=== PATIENT | female | born 1975 | race Caucasian/White ===

== ENCOUNTER → 2021-06-07 11:43 | Outpatient (BNVA) | payer SELFPAY | DX: R39.9 Unspecified symptoms and signs involving the genitourinary system (principal); N39.0 Urinary tract infection, site not specified; R31.9 Hematuria, unspecified; R68.89 Other general symptoms and signs | CPT/HCPCS: 81000 ==

== ENCOUNTER 2021-06-16 20:29 | Emergency (ER) | payer SELFPAY ==
[2021-06-16 21:29] VITALS: BP 145/89; PULSE 88; RESP 16; TEMP 36.7; O2SAT 98; BMI 31.8
--- NOTE | 2021-06-17 01:59 | ED_ITS ---
HPI - Female Genitourinary General: Chief complaint: Urogenital-Female Stated complaint: Lower Back Pain\Fever Cant Sleep Time Seen by Provider: 06/17/21 01:51 Source: patient Mode of arrival: ambulatory Limitations: no limitations History of Present Illness: HPI Narrative: 35-year-old female states over the last 2 weeks she has been having right-sided flank pain along with fevers body aches and general malaise. States she has been very fatigued and sleeping a lot. She states she does not have a PCP but saw urgent care a little over a week ago diagnosed a UTI and just finished Macrobid. Denies any vomiting or diarrhea. Denies any abdominal pain. Associated symptoms: Deny abdominal pain, headache(s) or nausea Review of Systems Const: Reports: fever(s), body aches and fatigue Eyes: Denies: blurry vision or eye discomfort ENMT: Denies: throat pain or dental pain Card: Denies: chest pain Resp: Denies: dyspnea GI: Denies: abdominal pain, nausea, vomiting or diarrhea : Reports: flank pain Musc: Denies: neck pain or back pain Skin/Breast: Denies: rash Neuro: Denies: headache(s) Psych: Denies: depression Kristopher/Lymph: Denies: easy bruising All/Imm: Denies: urticaria PFSH ED PFSH: Social History Smoking and tobacco status: current every day smoker Physical Exam Const: COMMON NORMALS: no acute distress, patient oriented x3 and healthy appearing HENMT: COMMON NORMALS: normocephalic and atraumatic HEAD & SCALP: normocephalic and atraumatic Eye: COMMON NORMALS: Equal, round and reactive pupils present and EOMs intact bilaterally PUPIL: Yes Equal, round and reactive pupils present Neck/C-Spine: COMMON NORMALS: full ROM and supple Chest: COMMONS NORMALS: normal inspection of the chest and normal palpation of entire chest wall Resp: COMMON NORMALS: normal respiratory effort, No retractions, No use of accessory muscles and clear to auscultation bilaterally AUSCULTATION: clear to auscultation bilaterally Cardio: COMMON NORMALS: regular rate, regular rhythm and No murmurs present (Cardio) RATE: regular rate RHYTHM: regular rhythm GI: COMMON NORMALS: Normal to inspection, nondistended, normoactive bowel sounds present, Soft to palpation, non-tender and no masses PALPATION: Yes Soft to palpation Extremity: COMMON NORMALS: normal to inspection and full ROM Neuro: COMMON NORMALS: patient oriented x3, moves all extremities and no focal motor deficits Psych: COMMON NORMALS: mental status grossly normal, Normal thought process present and cooperative THOUGHT PROCESS: Normal thought process present Skin: COMMON NORMALS: no rashes or lesions noted and no wounds GENERAL SKIN EXAM: no rashes or lesions noted Course Vital Signs: Vital signs: Vital Signs Temperature 98.1 F 06/16/21 21:29 Pulse Rate 88 06/16/21 21:29 Respiratory Rate 22 H 06/17/21 03:02 Blood Pressure 133/59 06/17/21 03:02 Pulse Oximetry 97 06/17/21 03:02 MDM - Female MDM Narrative: Medical decision making narrative: Patient presents with low back pain is been going on for quite some time. Her blood work here is normal. Abdominal exam here is benign and she has no signs of kidney infection or acute surgical abdomen. Will place patient on pain meds and she is to follow-up with PCP as scheduled next week and return if worsening. Lab Data: Labs: Lab Results 06/17/21 06/17/21 06/17/21 Range/Units 03:40 03:40 03:40 WBC 6.7 (4.0-10.0) 10^3/ uL RBC 4.40 (4.1-5.3) 10^6/u L Hgb 13.9 (11.5-15.3) g/dL Hct 41.1 (37.0-47.0) % MCV 93.4 (81-99) fL MCH 31.6 (28.0-34.0) pg MCHC 33.8 (30.0-36.0) g/dL RDW 13.8 (12.1-15.1) % Plt Count 224 (130-400) 10^3/c mm MPV 8.8 (7.4-10.4) fL Lymph % (Auto) Not Reportable [place] % (Auto) Not Reportable Lymph # (Auto) Not Reportable [place] # (Auto) Not Reportable Total Counted 100 (0-100) Atypical Lymphs % 9.0 H (0-5) % Absolute Neutrophi ls 4.0 (1.4-6.5) 10^3/c mm Segmented Neutroph ils 55 % Abs Segm Neuts (Ma n) 3.7 (1.6-7.1) 10/cmm Band Neutrophils 4.0 % Abs Band Neuts (Ma n) 0.3 (0.0-1.2) 10^3/c mm Absolute Lymphocyt es 2.3 (1.2-3.4) 10^3/c mm Lymphocytes (Manua l) 26 % Monocytes (Manual) 2.0 % Absolute Monocytes 0.1 (0.1-0.6) 10^3/c mm Eosinophils (Manua l) 4 % Absolute Eosinophi ls 0.2 (0.0-0.7) 10^3/c mm Basophils (Manual) 0.0 % Absolute Basophils 0.0 (0.0-0.2) 10^3/c mm Platelet Estimate Normal (Normal) Sodium 130 L (136-145) mmol/L Potassium 3.6 (3.5-5.1) mmol/L Chloride 95 L (98-107) mmol/L Carbon Dioxide 24 (22-29) mmol/L Anion Gap 14.6 (5-19) BUN 8 (6-20) mg/dL Creatinine 0.8 (0.5-0.9) mg/dL GFR Calculation 77.6 L (90-130) mL/min Glucose 95 (65-115) mg/dL Calculated Osmolal ity 268 L (285-295) mOsm/k g Calcium 8.3 L (8.5-10.5) mg/dL Total Bilirubin 0.3 (0.15-1.2) mg/dL AST 24 (0-32) U/L ALT 24 (0-33) U/L Alkaline Phosphata se 113 H (35-105) IU/L Total Protein 6.7 (6.6-8.7) g/dL Albumin 3.7 (3.5-5.2) g/dL Globulin 3.0 (1.3-4.6) g/dL Lipase 40 (13-60) U/L TSH (0.27-4.20) uIU/ mL HCG, Qual Negative (Negative) Urine Color (Yellow) Urine Appearance (CLEAR) Urine pH (5-7) Ur Specific Gravit y (1.005-1.030) Urine Protein (Negative) Urine Glucose (UA) (Normal) Urine Ketones (Negative) Urine Blood (Negative) Urine Nitrate (Negative) Urine Bilirubin (Negative) Urine Urobilinogen (Negative) mg/dL Ur Leukocyte Aster ase (Negative) Urine RBC (0-2) /hpf Urine WBC (0-5) /hpf Ur Squamous Epith Cells (0-5) /hpf Amorphous Sediment Urine Bacteria (NONE) /hpf Urine Mucus /hpf 06/17/21 06/17/21 Range/Units 03:40 03:40 WBC (4.0-10.0) 10^3/ uL RBC (4.1-5.3) 10^6/u L Hgb (11.5-15.3) g/dL Hct (37.0-47.0) % MCV (81-99) fL MCH (28.0-34.0) pg MCHC (30.0-36.0) g/dL RDW (12.1-15.1) % Plt Count (130-400) 10^3/c mm MPV (7.4-10.4) fL Lymph % (Auto) [place] % (Auto) Lymph # (Auto) [place] # (Auto) Total Counted (0-100) Atypical Lymphs % (0-5) % Absolute Neutrophi ls (1.4-6.5) 10^3/c mm Segmented Neutroph ils % Abs Segm Neuts (Ma n) (1.6-7.1) 10/cmm Band Neutrophils % Abs Band Neuts (Ma n) (0.0-1.2) 10^3/c mm Absolute Lymphocyt es (1.2-3.4) 10^3/c mm Lymphocytes (Manua l) % Monocytes (Manual) % Absolute Monocytes (0.1-0.6) 10^3/c mm Eosinophils (Manua l) % Absolute Eosinophi ls (0.0-0.7) 10^3/c mm Basophils (Manual) % Absolute Basophils (0.0-0.2) 10^3/c mm Platelet Estimate (Normal) Sodium (136-145) mmol/L Potassium (3.5-5.1) mmol/L Chloride (98-107) mmol/L Carbon Dioxide (22-29) mmol/L Anion Gap (5-19) BUN (6-20) mg/dL Creatinine (0.5-0.9) mg/dL GFR Calculation (90-130) mL/min Glucose (65-115) mg/dL Calculated Osmolal ity (285-295) mOsm/k g Calcium (8.5-10.5) mg/dL Total Bilirubin (0.15-1.2) mg/dL AST (0-32) U/L ALT (0-33) U/L Alkaline Phosphata se (35-105) IU/L Total Protein (6.6-8.7) g/dL Albumin (3.5-5.2) g/dL Globulin (1.3-4.6) g/dL Lipase (13-60) U/L TSH 2.17 (0.27-4.20) uIU/ mL HCG, Qual (Negative) Urine Color Yellow (Yellow) Urine Appearance Clear (CLEAR) Urine pH 5 (5-7) Ur Specific Gravit y 1.020 (1.005-1.030) Urine Protein Neg (Negative) Urine Glucose (UA) Norm (Normal) Urine Ketones Negative (Negative) Urine Blood 2+ H (Negative) Urine Nitrate Negative (Negative) Urine Bilirubin 1+ H (Negative) Urine Urobilinogen 1 H (Negative) mg/dL Ur Leukocyte Aster ase Negative (Negative) Urine RBC 0-4 H (0-2) /hpf Urine WBC 0-4 H (0-5) /hpf Ur Squamous Epith Cells 10-15 H (0-5) /hpf Amorphous Sediment Not Reportable Urine Bacteria Trace (NONE) /hpf Urine Mucus 1+ /hpf Discharge Plan Discharge Patient Disposition: Home Clinical Impression: Low back pain Qualifiers: Chronicity: acute Back pain laterality: bilateral Sciatica presence: without sciatica Qualified Code(s): M54.5 - Low back pain Condition: Stable Prescriptions: New hydrocodone-acetaminophen 5-325 mg tablet 1 tab PO Q6H PRN (Reason: pain) Qty: 14 RF: 0 methocarbamol 750 mg tablet 750 mg PO Q6H PRN (Reason: spasms) Qty: 20 RF: 0 No Action dextroamphetamine-amphetamine [Adderall] 10 mg tablet 10 mg PO DAILY RF: 0 nitrofurantoin macrocrystal 100 mg capsule 100 mg PO BID 7 Days Qty: 14 RF: 0 Discharge Orders: Discharge ED (Routine); Ordered 06/17/21 Ordered By: Rober Stanton Discharge Diet: Advance as tolerated Discharge Activity: Resume usual activity Patient Instructions: Opioid Safety Coding Level of Care Code ED Senior Consumer Insights Consultant for Suhailg Fwd Exam Comprehensive
--- NOTE | 2021-06-17 02:02 | XRR_ITS ---
PROCEDURE INFORMATION: Exam: XR Chest Exam date and time: 06/17/2021 2:02 AM Age: 45 years old Clinical indication: Patient HX: Fever. Clothing artifact present on film. TECHNIQUE: Imaging protocol: XR of the chest. Views: 1 view. COMPARISON: CR Chest 1 [place] [id number] 08/18/2016 3:36 PM FINDINGS: Lungs: There are multiple calcified pulmonary nodules consistent with prior granulomatous disease. Hazy right basilar opacity which could be secondary to atelectasis or pneumonia. Pleural spaces: Unremarkable. No pleural effusion. No pneumothorax. Heart/Mediastinum: Unremarkable. No cardiomegaly. Bones/joints: Unremarkable. XR/XR chest 1V portable [id number] IMPRESSION: Hazy right basilar opacity which could be secondary to atelectasis or pneumonia.
[2021-06-17 03:02] VITALS: BP 133/59; RESP 22; O2SAT 97
[2021-06-17 03:46] LABS: Hematocrit 41.1 % (37.0-47.0); Hemoglobin 13.9 g/dL (11.5-15.3); Mean Corpuscular HGB Conc 33.8 g/dL (30.0-36.0); Mean Corpuscular Hemoglobin 31.6 pg (28.0-34.0); Mean Corpuscular Volume 93.4 fL (81-99); Mean Platelet Volume 8.8 fL (7.4-10.4); Platelet Count 224 10^3/cmm (130-400); Red Cell Distribution Width 13.8 % (12.1-15.1); White Blood Count 6.7 10^3/uL (4.0-10.0)
[2021-06-17] MEDS: sodium chloride 0.9% 1,000 ML 999 ML IV (04:00)
[2021-06-17] MEDS: ondansetron 2 mg/ML SDV 2 mL 4 MG IVP (04:02)
[2021-06-17 04:06] LABS: Alanine Aminotransferase 24 U/L (0-33); Albumin Level 3.7 g/dL (3.5-5.2); Alkaline Phosphatase 113 IU/L (35-105); Anion Gap 14.6 (5-19); Aspartate Amino Transferase 24 U/L (0-32); Blood Urea Nitrogen 8 mg/dL (6-20); Calcium 8.3 mg/dL (8.5-10.5); Carbon Dioxide 24 mmol/L (22-29); Chloride 95 mmol/L (98-107); Glomerular Filtration Rate 77.6 mL/min (90-130); Glucose 95 mg/dL (65-115); Lipase 40 U/L (13-60); Osmolality Calculated 268 mOsm/kg (285-295); Potassium 3.6 mmol/L (3.5-5.1); Sodium 130 mmol/L (136-145); Total Bilirubin 0.3 mg/dL (0.15-1.2); Total Protein 6.7 g/dL (6.6-8.7)
[2021-06-17 04:09] LABS: Absolute Eosinophils 0.2 10^3/cmm (0.0-0.7); Absolute Segmented Neutrophil 3.7 10/cmm (1.6-7.1); Band Neutrophils Absolute 0.3 10^3/cmm (0.0-1.2); Eosinophils 4 %; Lymphocytes 26 %; Lymphocytes Absolute 2.3 10^3/cmm (1.2-3.4); Monocytes Absolute 0.1 10^3/cmm (0.1-0.6); Platelet Estimate Normal (Normal); Segmented Neutrophils 55 %; Slide Review Slide Review Perform; Total Cells Counted 100 (0-100)
[2021-06-17 04:16] LABS: Thyroid Stimulating Hormone 2.17 uIU/mL (0.27-4.20)
[2021-06-17 04:54] LABS: Add Urine Microscopic? YES; Bilirubin Urine 1+ (Negative); Blood Urine 2+ (Negative); Glucose Urine UA Norm (Normal); Ketones Urine Negative (Negative); Leukocyte Esterase Urine Negative (Negative); Nitrate Urine Negative (Negative); Protein Urine Neg (Negative); RBC Urine 0-4 /hpf (0-2); Urine Appearance Clear (CLEAR); Urine Color Yellow (Yellow); Urobilinogen Urine 1 mg/dL (Negative); WBC Urine 0-4 /hpf (0-5); pH Urine 5 (5-7)
[2021-06-17 04:55] LABS: Add Urine Culture? No; Bacteria Urine TRACE /hpf; Mucus Urine 1+ /hpf
[2021-06-17 05:10] LABS: HCG Qualitative Urine. Negative (Negative)
[2021-06-17 06:18] VITALS: RESP 18; O2SAT 97
[2021-06-17] MEDS: morphine 4 mg/mL SDV 1 mL IVP (06:18)
[2021-06-17 06:21] VITALS: BP 133/59; PULSE 88; RESP 22; O2SAT 97
== END 2021-06-17 06:10 | disposition home or self-care (01) ==
PROVIDERS: Emergency Provider Emergency Medicine
DX: M54.5 Low back pain (principal); F17.200 Nicotine dependence, unspecified, uncomplicated
CPT/HCPCS: 71045; 80053; 81001; 81025; 83690; 84443; 85007; 85025; 96361; 96374; 96375; 99283; J2270; J2405; J7030

== ENCOUNTER → 2021-06-22 12:17 | Outpatient (BNVA) | payer OTHER, SELFPAY | PROVIDERS: Visit Provider Nurse Practitioner Family | DX: Z20.822 Contact with and (suspected) exposure to COVID-19 (principal) | CPT/HCPCS: 87635 ==

== ENCOUNTER 2021-06-29 17:23 | Emergency (ER) | payer SELFPAY ==
[2021-06-29 17:40] VITALS: BP 143/75; PULSE 98; RESP 24; TEMP 38.7; O2SAT 94
--- NOTE | 2021-06-29 18:49 | XRR_ITS ---
PROCEDURE INFORMATION: Exam: XR Chest Exam date and time: 06/29/2021 6:49 PM Age: 45 years old Clinical indication: Shortness of breath TECHNIQUE: Imaging protocol: XR of the chest. Views: 1 view. COMPARISON: CR (CHEST, ) 06/17/2021 2:02 AM FINDINGS: Lungs: 5 mm calcified granuloma left upper lobe. No consolidative pulmonary infiltrates are noted. Pleural spaces: No pleural effusion. No pneumothorax. Heart/Mediastinum: No cardiomegaly. Bones/joints: Unremarkable. XR/XR chest 1V portable [id number] IMPRESSION: 1. No acute abnormality demonstrated. 2. There is no interval change from the prior examination.
[2021-06-29 20:45] LABS: SARS Covid-2 Antigen Negative (Negative)
--- NOTE | 2021-06-29 20:50 | ECG_ITS ---
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 Measurements Intervals [place] Rate: 93 P: 62 CO: 117 QRS: 9 QRSD: 86 T: 44 QT: 348 QTc: 433 Interpretive Statements SINUS RHYTHM WITH SHORT CO INTERVAL Compared to ECG 08/18/2016 17:45:36 Short CO interval now present Electronically Signed On 07-01-2021 7:40:58 CDT by Karey Hurst M.D. [id number]
[2021-06-29 22:31] LABS: Hematocrit 41.6 % (37.0-47.0); Hemoglobin 13.7 g/dL (11.5-15.3); Mean Corpuscular HGB Conc 32.9 g/dL (30.0-36.0); Mean Corpuscular Hemoglobin 31.6 pg (28.0-34.0); Mean Corpuscular Volume 95.9 fL (81-99); Mean Platelet Volume 8.7 fL (7.4-10.4); Platelet Count 322 10^3/cmm (130-400); Red Blood Count 4.34 10^6/uL (4.1-5.3); Red Cell Distribution Width 14.4 % (12.1-15.1); White Blood Count 22.2 10^3/uL (4.0-10.0)
[2021-06-29 22:47] LABS: Anion Gap 15.5 (5-19); Blood Urea Nitrogen 10 mg/dL (6-20); Calcium 7.8 mg/dL (8.5-10.5); Carbon Dioxide 25 mmol/L (22-29); Chloride 92 mmol/L (98-107); Glomerular Filtration Rate 90.5 mL/min (90-130); Glucose 102 mg/dL (65-115); Osmolality Calculated 267 mOsm/kg (285-295); Potassium 3.5 mmol/L (3.5-5.1); Sodium 129 mmol/L (136-145)
--- NOTE | 2021-06-29 22:51 | USR_ITS ---
PROCEDURE INFORMATION: Exam: US Duplex Lower Extremity Veins, Bilateral Exam date and time: 06/29/2021 10:51 PM Age: 45 years old Clinical indication: Swelling (edema) of limb; Lower extremity, right and lower extremity, left; Additional info: Evaluate for dvt (l>r swelling) TECHNIQUE: Imaging protocol: Real-time duplex ultrasound of the extremities with 2-D durbin scale, color Doppler flow and spectral waveform analysis with image documentation. Complete exam focused on the bilateral lower extremity veins. COMPARISON: No relevant prior studies available. FINDINGS: Right deep veins: Unremarkable. The common femoral, femoral, proximal profunda femoral and popliteal veins are patent without thrombus. Normal Doppler waveforms. Normal compressibility and/or augmentation response. Right superficial veins: Saphenofemoral junction is patent without thrombus. Left deep veins: Unremarkable. The common femoral, femoral, proximal profunda femoral and popliteal veins are patent without thrombus. Normal Doppler waveforms. Normal compressibility and/or augmentation response. Left superficial veins: Saphenofemoral junction is patent without thrombus. Soft tissues: Unremarkable. US/CV venous duplex [facility] [id number] IMPRESSION: No evidence of deep vein thrombosis, bilateral lower extremities.
--- NOTE | 2021-06-29 22:51 | CTR_ITS ---
PROCEDURE INFORMATION: Exam: CTA Chest With Contrast Exam date and time: 06/29/2021 10:51 PM Age: 45 years old Clinical indication: Nausea; Shortness of breath; Prior surgery; Surgery type: Hyst, gb; Additional info: Rule out pe, weakness TECHNIQUE: Imaging protocol: Computed tomographic angiography of the chest with contrast. 3D rendering (Not supervised by radiologist): MIP and/or 3D reconstructed images were created by the technologist. Radiation optimization: All CT scans at this facility use at least one of these dose optimization techniques: automated exposure control; mA and/or kV adjustment per patient size (includes targeted exams where dose is matched to clinical indication); or iterative reconstruction. Contrast material: OMNI 350; Contrast volume: 95 ml; Contrast route: INTRAVENOUS (IV); COMPARISON: CR (CHEST, ) 06/29/2021 9:40 PM RADIATION DOSE METRICS: Total DLP (mGy-cm): 3163.3 FINDINGS: Pulmonary arteries: Pulmonary arteries are well opacified. Pulmonary arteries are normal in caliber. No filling defects are demonstrated. No evidence of pulmonary embolism. Aorta: The thoracic aorta appears unremarkable. No aneurysm or dissection demonstrated. Lungs: 10 mm calcified granuloma left lower lobe. Mild fibrosis at the lung apices and bilateral lung bases. Minimal bronchiectasis in the right middle lobe and right lower lobe. No consolidative pulmonary infiltrate. Pleural spaces: No pleural effusion or pneumothorax noted. Heart: No cardiomegaly. No pericardial effusion. Lymph nodes: Calcified mediastinal lymph nodes consistent with old granulomatous disease. No pathologically enlarged lymph nodes are demonstrated. Bones/joints: Mild degenerative spine changes. No acute osseous abnormality. Soft tissues: The soft tissues appear unremarkable. IMPRESSION: 1. Pulmonary arteries appear unremarkable. No evidence of pulmonary embolism. 2. No evidence of thoracic aortic aneurysm or dissection. 3. Mild fibrosis at the lung apices and bilateral lung bases. Minimal bronchiectasis in the right middle lobe and right lower lobe. No consolidative pulmonary infiltrate. PROCEDURE INFORMATION: Exam: CT Abdomen And Pelvis With Contrast Exam date and time: 06/29/2021 10:51 PM Age: 45 years old Clinical indication: Nausea; Shortness of breath; Prior surgery; Surgery type: Hyst, gb; Additional info: Rule out pe, weakness TECHNIQUE: Imaging protocol: Computed tomography of the abdomen and pelvis with contrast. Radiation optimization: All CT scans at this facility use at least one of these dose optimization techniques: automated exposure control; mA and/or kV adjustment per patient size (includes targeted exams where dose is matched to clinical indication); or iterative reconstruction. Contrast material: OMNI 350; Contrast volume: 95 ml; Contrast route: INTRAVENOUS (IV); COMPARISON: CR (CHEST, ) 06/29/2021 9:40 PM RADIATION DOSE METRICS: Total DLP (mGy-cm): 3136.3 FINDINGS: Lungs: No significant abnormaility demonstrated. Liver: Hepatomegaly noted. Liver measures 21 cm in length. No focal liver lesion demonstrated. Gallbladder and bile ducts: The gallbladder is surgically absent. No biliary dilatation. Pancreas: The pancreas is normal in appearance. No pancreatic duct dilatation. 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 Calcified granulomas are noted in the spleen. Adrenal glands: The adrenal glands appear within normal limits. Kidneys and ureters: The kidneys are normal in morphology. No hydronephrosis. No solid mass. Stomach and bowel: No acute gastric abnormality demonstrated. The small bowel is unremarkable as demonstrated. No acute abnormality/inflammatory change of the colon. Appendix: No evidence of appendicitis. A normal appendix is identified. Intraperitoneal space: No free air. No significant fluid collection. Vasculature: No abdominal aortic aneurysm. Lymph nodes: No pathologically enlarged lymph nodes are demonstrated. Urinary bladder: The urinary bladder is unremarkable in appearance. Reproductive: The uterus is not visualized, consistent with hysterectomy. Bones/joints: Unremarkable. No acute osseous abnormality. Soft tissues: The soft tissues appear unremarkable. CT/CT angio chest w abd pel w con IMPRESSION: 1. 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 2. Hepatomegaly noted. Liver measures 21 cm in length. No focal liver lesion demonstrated. 3. No acute bowel abnormality identified. Radiation Dose CTDIVOL = (mGy): DLP = 3163.3~3136.3 (mGy-cm)
[2021-06-29 23:24] LABS: Absolute Eosinophils 0.2 10^3/cmm (0.0-0.7); Absolute Neutrophil 5.6 10^3/cmm (1.4-6.5); Absolute Segmented Neutrophil 5.6 10/cmm (1.6-7.1); Eosinophils 1 %; Lymphocytes 39 %; Monocytes Absolute 0.4 10^3/cmm (0.1-0.6); Platelet Estimate Normal (Normal); Segmented Neutrophils 25 %; Slide Review Slide Review Perform; Total Cells Counted 100 (0-100)
[2021-06-29] MEDS: acetaminophen 500 mg Tablet 1000 MG PO (23:26)
[2021-06-29 23:33] LABS: Troponin T (5th) Once 6 ng/L (0-10)
[2021-06-29 23:41] LABS: NT Pro B Type Natriuretic Pept 27 pg/mL (0-125)
[2021-06-29] MEDS: iohexol 350 mg/mL 100 mL Btl IV (23:54)
[2021-06-30 00:34] VITALS: BP 137/71; PULSE 85; RESP 15; O2SAT 97
--- NOTE | 2021-06-30 00:48 | ED_ITS ---
HPI - General Adult General: Chief complaint: Shortness of Breath/Dyspnea Stated complaint: SOB/WEAKNESS Time Seen by Provider: 06/29/21 21:34 History of Present Illness: HPI narrative: Patient is a 45-year-old female with history of hypertension presenting to the emergency room with acute onset of severe left upper quadrant abdominal pain x1 day in the setting of shortness of breath difficulty breathing. States that her chest pain shortness of breath has been going on for 3 weeks. Patient has had 3 negative Covid test. Patient reports that she has had intermittent fever in the last 3 weeks. Onset:1 day Duration:1 day Location:home Severity: severe Review of Systems Narrative: Constitutional: No fever, no chills. HEENT: No vision changes CV: +chest pain, no palpitations PULM: no cough, +dyspnea. GI: +LUQ abdominal pain, no N/V/D. : No dysuria MSKEL: No muscle pain SKIN: No new rashes, no lesions. NEURO: No headache, no focal weakness. HEME: No visible bruises PSYCH: Normal mood PFSH ED PFSH: Social History (Updated 06/24/21 @ 13:56 by Monty Roque LPN) Smoking and tobacco status: current every day smoker Second hand smoke exposure: Yes Alcohol intake: never Physical Exam Narrative: EXAM NARRATIVE: Head: Atraumatic Eyes: PERRL, conjunctiva without injection ENT: Mucous membrane moist NECK: Supple, ROM intact LUNGS: LCTAB, no crackles/rhonchi CV: RRR ABDOMEN: Soft, + moderate left upper quadrant tenderness to palpation, no guarding no rebound tenderness, McBurney's point tenderness, no Jones sign, no CVA tenderness, no suprapubic tenderness EXTREMITY: Normal ROM SKIN: No rash or erythema NEURO: Awake and alert, no focal motor deficits PSYCH: Normal mood and affect Course Vital Signs: Vital signs: Vital Signs Temperature 98.1 F 06/30/21 01:02 Pulse Rate 85 06/30/21 00:34 Respiratory Rate 15 06/30/21 00:34 Blood Pressure 137/71 06/30/21 00:34 Pulse Oximetry 97 06/30/21 00:34 MDM - General Adult MDM Narrative: Medical decision making narrative: Patient a 45-year-old female with history hypertension presenting to the emergency room with complaints of left upper quadrant abdominal pain x2 days which started at rest. On exam, patient has moderate tenderness to palpation. Patient endorses dyspnea, chest pain x3 weeks. In addition, patient has intermittent fever x3 weeks. On arrival, patient is febrile to 101.3. White count of 22.2K. PA chest did not show any signs of acute PE. Patient is however noted to have a 3 cm splenic infarction likely subacute. I have discussed findings with radiology who informs me that this is likely to occur within 1 day which corresponds with patient's onset of symptoms. Case discussed with Dr. Vang from [facility] who agress with the transfer. Patient is started on Vanco and Zosyn. Fever controlled with tylenol. Pain control with morphine. REceived 1mg of ativan prior transport for anxiety. Disposition:Transfer to [facility] Lab Data: Labs: Lab Results 06/29/21 06/29/21 06/29/21 Range/Units 19:35 22:23 22:23 WBC 22.2 H (4.0-10.0) 10^3/ uL RBC 4.34 (4.1-5.3) 10^6/u L Hgb 13.7 (11.5-15.3) g/dL Hct 41.6 (37.0-47.0) % MCV 95.9 (81-99) fL MCH 31.6 (28.0-34.0) pg MCHC 32.9 (30.0-36.0) g/dL RDW 14.4 (12.1-15.1) % Plt Count 322 (130-400) 10^3/c mm MPV 8.7 (7.4-10.4) fL Lymph % (Auto) Not Reportable [place] % (Auto) Not Reportable Lymph # (Auto) Not Reportable [place] # (Auto) Not Reportable Total Counted 100 (0-100) Atypical Lymphs % 33.0 H (0-5) % Absolute Neutrophi ls 5.6 (1.4-6.5) 10^3/c mm Segmented Neutroph ils 25 % Abs Segm Neuts (Ma n) 5.6 (1.6-7.1) 10/cmm Band Neutrophils 0.0 % Abs Band Neuts (Ma n) 0.0 (0.0-1.2) 10^3/c mm Absolute Lymphocyt es 16.0 H (1.2-3.4) 10^3/c mm Lymphocytes (Manua l) 39 % Monocytes (Manual) 2.0 % Absolute Monocytes 0.4 (0.1-0.6) 10^3/c mm Eosinophils (Manua l) 1 % Absolute Eosinophi ls 0.2 (0.0-0.7) 10^3/c mm Basophils (Manual) 0.0 % Absolute Basophils 0.0 (0.0-0.2) 10^3/c mm Platelet Estimate Normal (Normal) Sodium 129 L (136-145) mmol/L Potassium 3.5 (3.5-5.1) mmol/L Chloride 92 L (98-107) mmol/L Carbon Dioxide 25 (22-29) mmol/L Anion Gap 15.5 (5-19) BUN 10 (6-20) mg/dL Creatinine 0.7 (0.5-0.9) mg/dL GFR Calculation 90.5 (90-130) mL/min Glucose 102 (65-115) mg/dL Calculated Osmolal ity 267 L (285-295) mOsm/k g Lactate (0.5-2.2) mmol/L Calcium 7.8 L (8.5-10.5) mg/dL Troponin T Gen 5 n g/L (0-10) ng/L NT-Pro-B Natriuret Pep (0-125) pg/mL SARS-CoV-2 Ag (Rap id) Negative (Negative) 06/29/21 06/29/21 06/30/21 Range/Units 22:23 22:23 01:21 WBC (4.0-10.0) 10^3/ uL RBC (4.1-5.3) 10^6/u L Hgb (11.5-15.3) g/dL Hct (37.0-47.0) % MCV (81-99) fL MCH (28.0-34.0) pg MCHC (30.0-36.0) g/dL RDW (12.1-15.1) % Plt Count (130-400) 10^3/c mm MPV (7.4-10.4) fL Lymph % (Auto) [place] % (Auto) Lymph # (Auto) [place] # (Auto) Total Counted (0-100) Atypical Lymphs % (0-5) % Absolute Neutrophi ls (1.4-6.5) 10^3/c mm Segmented Neutroph ils % Abs Segm Neuts (Ma n) (1.6-7.1) 10/cmm Band Neutrophils % Abs Band Neuts (Ma n) (0.0-1.2) 10^3/c mm Absolute Lymphocyt es (1.2-3.4) 10^3/c mm Lymphocytes (Manua l) % Monocytes (Manual) % Absolute Monocytes (0.1-0.6) 10^3/c mm Eosinophils (Manua l) % Absolute Eosinophi ls (0.0-0.7) 10^3/c mm Basophils (Manual) % Absolute Basophils (0.0-0.2) 10^3/c mm Platelet Estimate (Normal) Sodium (136-145) mmol/L Potassium (3.5-5.1) mmol/L Chloride (98-107) mmol/L Carbon Dioxide (22-29) mmol/L Anion Gap (5-19) BUN (6-20) mg/dL Creatinine (0.5-0.9) mg/dL GFR Calculation (90-130) mL/min Glucose (65-115) mg/dL Calculated Osmolal ity (285-295) mOsm/k g Lactate 1.5 (0.5-2.2) mmol/L Calcium (8.5-10.5) mg/dL Troponin T Gen 5 n g/L 6 (0-10) ng/L NT-Pro-B Natriuret Pep 27 (0-125) pg/mL SARS-CoV-2 Ag (Rap id) (Negative) Imaging Data^: Other Imaging: Radiologist's impression: [address] [id number] Scan ReportSigned Patient: Janis Al #: [id number]: [id number]#:[id number]/Sex: 45 / FADM Date: 06/29/21Loc: ERRoom/Bed:Attending Dr: Ordering Provider/Ordering MD: Eren Cruz MD Date of Service: 06/29/21 Procedure(s): CT angio chest w abd pel w con Accession Number(s): [id number] Report Number: [id number] PROCEDURE INFORMATION: Exam: CTA Chest With Contrast Exam date and time: 06/29/2021 10:51 PM Age: 45 years old Clinical indication: Nausea; Shortness of breath; Prior surgery; Surgery type: Hyst, gb; Additional info: Rule out pe, weakness TECHNIQUE: Imaging protocol: Computed tomographic angiography of the chest with contrast. 3D rendering (Not supervised by radiologist): MIP and/or 3D reconstructed images were created by the technologist. Radiation optimization: All CT scans at this facility use at least one of these dose optimization techniques: automated exposure control; mA and/or kV adjustment per patient size (includes targeted exams where dose is matched to clinical indication); or iterative reconstruction. Contrast material: OMNI 350; Contrast volume: 95 ml; Contrast route: INTRAVENOUS (IV); COMPARISON: CR (CHEST, ) 06/29/2021 9:40 PM RADIATION DOSE METRICS: Total DLP (mGy-cm): 3163.3 FINDINGS: Pulmonary arteries: Pulmonary arteries are well opacified. Pulmonary arteries are normal in caliber. No filling defects are demonstrated. No evidence of pulmonary embolism. Aorta: The thoracic aorta appears unremarkable. No aneurysm or dissection demonstrated. Lungs: 10 mm calcified granuloma left lower lobe. Mild fibrosis at the lung apices and bilateral lung bases. Minimal bronchiectasis in the right middle lobe and right lower lobe. No consolidative pulmonary infiltrate. Pleural spaces: No pleural effusion or pneumothorax noted. Heart: No cardiomegaly. No pericardial effusion. Lymph nodes: Calcified mediastinal lymph nodes consistent with old granulomatous disease. No pathologically enlarged lymph nodes are demonstrated. Bones/joints: Mild degenerative spine changes. No acute osseous abnormality. Soft tissues: The soft tissues appear unremarkable. IMPRESSION: 1. Pulmonary arteries appear unremarkable. No evidence of pulmonary embolism. 2. No evidence of thoracic aortic aneurysm or dissection. 3. Mild fibrosis at the lung apices and bilateral lung bases. Minimal bronchiectasis in the right middle lobe and right lower lobe. No consolidative pulmonary infiltrate. PROCEDURE INFORMATION: Exam: CT Abdomen And Pelvis With Contrast Exam date and time: 06/29/2021 10:51 PM Age: 45 years old Clinical indication: Nausea; Shortness of breath; Prior surgery; Surgery type: Hyst, gb; Additional info: Rule out pe, weakness TECHNIQUE: Imaging protocol: Computed tomography of the abdomen and pelvis with contrast. Radiation optimization: All CT scans at this facility use at least one of these dose optimization techniques: automated exposure control; mA and/or kV adjustment per patient size (includes targeted exams where dose is matched to clinical indication); or iterative reconstruction. Contrast material: OMNI 350; Contrast volume: 95 ml; Contrast route: INTRAVENOUS (IV); COMPARISON: CR (CHEST, ) 06/29/2021 9:40 PM RADIATION DOSE METRICS: Total DLP (mGy-cm): 3136.3 FINDINGS: Lungs: No significant abnormaility demonstrated. Liver: Hepatomegaly noted. Liver measures 21 cm in length. No focal liver lesion demonstrated. Gallbladder and bile ducts: The gallbladder is surgically absent. No biliary dilatation. Pancreas: The pancreas is normal in appearance. No pancreatic duct dilatation. 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 Calcified granulomas are noted in the spleen. Adrenal glands: The adrenal glands appear within normal limits. Kidneys and ureters: The kidneys are normal in morphology. No hydronephrosis. No solid mass. Stomach and bowel: No acute gastric abnormality demonstrated. The small bowel is unremarkable as demonstrated. No acute abnormality/inflammatory change of the colon. Appendix: No evidence of appendicitis. A normal appendix is identified. Intraperitoneal space: No free air. No significant fluid collection. Vasculature: No abdominal aortic aneurysm. Lymph nodes: No pathologically enlarged lymph nodes are demonstrated. Urinary bladder: The urinary bladder is unremarkable in appearance. Reproductive: The uterus is not visualized, consistent with hysterectomy. Bones/joints: Unremarkable. No acute osseous abnormality. Soft tissues: The soft tissues appear unremarkable. CT/CT angio chest w abd pel w con IMPRESSION: 1. 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 2. Hepatomegaly noted. Liver measures 21 cm in length. No focal liver lesion demonstrated. 3. No acute bowel abnormality identified. Radiation Dose CTDIVOL = (mGy): DLP = 3163.3~3136.3 (mGy-cm) Dictated By:Johnathan Johnson MDSigned By:Johnathan Johnson MDSigned Date/Time:06/30/21 0013DD/ 0011 Discharge Plan Discharge Patient Disposition: Transfer to ED Clinical Impression: Infarction of spleen, Fever, Leukocytosis Condition: Stable Prescriptions: No Action amoxicillin-pot clavulanate 875-125 mg tablet 1 tab PO BID RF: 0 prednisone 10 mg tablets,dose pack See Rx Instructions PO PER PKG DIR RF: 0 hydrocodone-acetaminophen 5-325 mg tablet 1 tab PO Q6H PRN (Reason: pain) Qty: 14 RF: 0 methocarbamol 750 mg tablet 750 mg PO Q6H PRN (Reason: spasms) Qty: 20 RF: 0 Discharge Orders: Discharge ED (Routine); Ordered 06/30/21 Ordered By: Eren Cruz Referrals: Pavel Collins DO [Primary Care Provider] - Discharge Diet: Regular Discharge Activity: Resume usual activity Coding Level of Care Code ED Film Examiner for Kerline Drake
[2021-06-30 01:02] VITALS: TEMP 36.7
[2021-06-30] MEDS: piperacillin-tazobactam 4.5 GM in sodium chloride 0.9% (plus) 50 ML IV (01:35)
[2021-06-30] MEDS: vancomycin 1,000 MG in sodium chloride 0.9% 250 ML 250 MG IV (01:35)
[2021-06-30] MEDS: LORazepam 2 mg/mL INJ 1 mL 1 MG IVP (02:01)
[2021-06-30 02:34] LABS: Lactate (Lactic Acid level) 1.5 mmol/L (0.5-2.2)
== END 2021-06-30 01:59 ==
PROVIDERS: Family Medicine; Emergency Provider Emergency Medicine; PCP Family Medicine
DX: D73.5 Infarction of spleen (principal); R50.9 Fever, unspecified; D72.829 Elevated white blood cell count, unspecified; I10 Essential (primary) hypertension; F17.200 Nicotine dependence, unspecified, uncomplicated
CPT/HCPCS: 71045; 71275; 74177; 80048; 83605; 83880; 84484; 85007; 85025; 87040; 87426; 93005; 93970; 96365; 96367; 96375; 99284; J2060; J2543; J3370; J7050; Q9967

== ENCOUNTER → 2021-07-12 13:11 | Outpatient (BNVA) | payer SELFPAY | PROVIDERS: PCP Family Medicine; Visit Provider Family Medicine | DX: Z79.01 Long term (current) use of anticoagulants (principal) | CPT/HCPCS: 85610 ==

== ENCOUNTER → 2021-07-20 15:05 | Outpatient (BNVA) | payer SELFPAY | PROVIDERS: PCP Family Medicine; Visit Provider Family Medicine | DX: Z79.01 Long term (current) use of anticoagulants (principal) | CPT/HCPCS: 85610 ==

== ENCOUNTER → 2021-07-22 14:01 | Outpatient (BNVA) | payer SELFPAY | PROVIDERS: PCP Family Medicine; Visit Provider Family Medicine | DX: Z79.01 Long term (current) use of anticoagulants (principal) | CPT/HCPCS: 85610 ==

== ENCOUNTER → 2021-08-05 15:01 | Outpatient (BNVA) | payer SELFPAY | PROVIDERS: PCP Family Medicine; Visit Provider Family Medicine | DX: I82.890 Acute embolism and thrombosis of other specified veins (principal); Z79.01 Long term (current) use of anticoagulants | CPT/HCPCS: 85610 ==

== ENCOUNTER → 2021-08-19 14:24 | Outpatient (BNVA) | payer SELFPAY | PROVIDERS: PCP Family Medicine; Visit Provider Family Medicine | DX: I82.890 Acute embolism and thrombosis of other specified veins (principal) | CPT/HCPCS: 85610 ==

== ENCOUNTER → 2021-09-03 14:49 | Outpatient (BNVA) | payer SELFPAY | PROVIDERS: PCP Family Medicine; Visit Provider Family Medicine | DX: Z79.01 Long term (current) use of anticoagulants (principal) | CPT/HCPCS: 85610 ==

== ENCOUNTER → 2021-09-16 14:19 | Outpatient (BNVA) | payer SELFPAY | PROVIDERS: PCP Family Medicine; Visit Provider Family Medicine | DX: Z79.01 Long term (current) use of anticoagulants (principal) | CPT/HCPCS: 85610 ==

== ENCOUNTER → 2021-10-04 10:37 | Outpatient (BNVA) | payer SELFPAY | PROVIDERS: PCP Family Medicine; Visit Provider Family Medicine | DX: Z79.01 Long term (current) use of anticoagulants (principal) | CPT/HCPCS: 85610 ==

== ENCOUNTER 2023-04-22 10:12 | Emergency (ER) | payer MEDICAID, SELFPAY ==
[2023-04-22 10:33] VITALS: BP 132/69; PULSE 76; RESP 17; TEMP 36.7; O2SAT 96; BMI 32.8
--- NOTE | 2023-04-22 11:25 | W.ED.SKABFB ---
HPI - Skin/Abscess/Foreign Bdy General: Chief complaint: Skin/Abscess/Foreign Body Stated complaint: insect bite on neck, swelling Time Seen by Provider: 04/22/23 10:13 History of Present Illness: Patient is a 49-year-old female comes to the ED with a insect bite on neck. Patient says approximately 4 days ago she was cleaning out her camper and felt something bite her neck. She swiped at her neck with her hand and did not see the insect that bit her. The next day she had some redness and swelling right anterior aspect of neck where the bite occurred. She went and saw all her PCP 4 days ago and they put her on some antibiotics. She has been taking the antibiotics daily and the redness and swelling continues to progress. Patient says spider bite pain is very mild and does not cause much discomfort. Denies any fevers, trouble breathing, throat swelling or difficulty swallowing. Associated symptoms: Deny chills, fever(s), nausea or vomiting Review of Systems Const: Denies: fever(s), chills or fatigue Eyes: Denies: change in vision or eye discomfort ENMT: Denies: throat pain, odynophagia, nasal discharge or nasal congestion Card: Denies: chest pain, palpitations, edema, swelling of feet/ankles, dyspnea on exertion or orthopnea Resp: Denies: dyspnea, productive cough or non-productive cough GI: Denies: abdominal pain, nausea, vomiting, diarrhea, constipation or hematochezia : Denies: flank pain, dysuria or hematuria Musc: Denies: neck pain, back pain or extremity swelling Skin/Breast: Reports: new lesions (Spider bite on anterior neck); Denies: rash Neuro: Denies: headache(s), numbness in extremities or weakness in extremities PFS ED PFSH: Medical History (Updated 04/22/23 @ 14:11 by KOLTON Zimmerman) No pertinent family history Surgical History (Updated 04/22/23 @ 14:11 by KOLTON Zimmerman) H/O: hysterectomy Hx of tubal ligation Social History Smoking and tobacco status: current every day smoker Second hand smoke exposure: Yes Alcohol intake: never Substance/Drug Use: former Physical Exam Const: COMMON NORMALS: patient oriented x3 HENMT: COMMON NORMALS: normocephalic HEAD & SCALP: normocephalic MOUTH: Normal oral and palatal mucosa present THROAT: posterior oropharynx normal and uvula midline Neck/C-Spine: COMMON NORMALS: supple GENERAL: Yes normal visual inspection Resp: COMMON NORMALS: normal respiratory effort, No retractions, No use of accessory muscles and clear to auscultation bilaterally AUSCULTATION: clear to auscultation bilaterally Cardio: COMMON NORMALS: regular rate, regular rhythm, S1 normal heart sound present, S2 normal heart sound present, No gallops present (Cardio), No clicks present (Cardio), No murmurs present (Cardio) and Peripheral pulses 2+ throughout RATE: regular rate RHYTHM: regular rhythm HEART SOUNDS: S1 normal heart sound present and S2 normal heart sound present PERIPHERAL PULSES: Peripheral pulses 2+ throughout GI: COMMON NORMALS: Normal to inspection, nondistended, normoactive bowel sounds present, Soft to palpation, non-tender and no masses PALPATION: Yes Soft to palpation : COMMON NORMALS: Yes no CVA tenderness BLADDER/KIDNEY EXAM: Yes no CVA tenderness Back/Pelvis: COMMON NORMALS: no CVA tenderness Extremity: COMMON NORMALS: normal to inspection Neuro: COMMON NORMALS: patient oriented x3 GAIT: Yes Normal gait present Skin: NARRATIVE SKIN EXAM: Anterior right aspect of neck shows small bite-like wound with some surrounding erythema and warmth. No visible purulent drainage noted. Lesion is nonfluctuant and indurated. GENERAL SKIN EXAM: dry skin Course Vital Signs: Vital signs: Vital Signs Temperature 98.0 F 04/22/23 10:33 Pulse Rate 75 04/22/23 11:51 Respiratory Rate 16 04/22/23 11:51 Blood Pressure 131/69 04/22/23 11:51 Pulse Oximetry 98 04/22/23 11:51 Oxygen Delivery Me thod Room Air 04/22/23 11:51 MDM - Skin/Abscess/Foreign Bdy Medicial Decision Making Patient is a 49-year-old female comes to the ED with a insect bite on neck. Patient says approximately 4 days ago she was cleaning out her camper and felt something bite her neck. She swiped at her neck with her hand and did not see the insect that bit her. The next day she had some redness and swelling right anterior aspect of neck where the bite occurred. She went and saw all her PCP 4 days ago and they put her on some antibiotics. She has been taking the antibiotics daily and the redness and swelling continues to progress. Patient says spider bite pain is very mild and does not cause much discomfort. Denies any fevers, trouble breathing, throat swelling or difficulty swallowing. Vitals are stable. Anterior right aspect of neck shows small bite-like wound with some surrounding erythema and warmth. No visible purulent drainage noted. Lesion is nonfluctuant and indurated. Patient was given dose of IM Rocephin and Decadron here in the ED. Patient diagnosed with infected bug bite and was discharged home. She was told to continue taking her previously prescribed Bactrim and to follow-up with her PCP in the next 2 to 3 days for reevaluation. Strict return to ED precautions given. Patient understood and agreed with plan. Discharge Plan Discharge Patient Disposition: Home Clinical Impression: Bug bite with infection Qualifiers: Encounter type: initial encounter Qualified Code(s): W57.XXXA - Bitten or stung by nonvenomous insect and other nonvenomous arthropods, initial encounter Condition: Stable Prescriptions: No Action sulfamethoxazole-trimethoprim [Bactrim DS] 800-160 mg tablet 1 tab PO BID 7 Days Qty: 14 0RF Discharge Orders: Discharge ED (Routine); Ordered 04/22/23 Ordered By: Ross Gutierrez Referrals: Pavel Colilns DO [Primary Care Provider] - Discharge Diet: Regular Discharge Activity: Increase activity as tolerated Patient Instructions: Cellulitis, Insect Bite or Sting (ED) Activity Restrictions/Additional Instructions: Follow-up with medical provider as directed in the next 2 to 3 days for reevaluation. Take medications as prescribed. Return to the ER or your medical provider if condition worsens. Please read and understand discharge instructions. Thank you for choosing [facility] for your healthcare needs today. Please realize this is an emergency room and that we are providing you with a medical screening exam and this may not be complete and all inclusive of all the testing and or work up that you may need to determine your ailment or severity of your illness. It is very important that you follow up as instructed or that you return to the Emergency Department should you have concerns or if your condition changes or worsens in any way. Coding Level of Care Code ED Farm Marketer for Kerline Drake
[2023-04-22] MEDS: dexamethasone 10 mg/mL INJ IM (11:48)
[2023-04-22] MEDS: cefTRIAXone 1,000 MG in water for injection-sterile 2.1 ML 2.1 MG IM (11:48)
[2023-04-22 11:51] VITALS: BP 131/69; PULSE 75; RESP 16; O2SAT 98
== END 2023-04-22 11:57 | disposition home or self-care (01) ==
PROVIDERS: Emergency Provider Physician Assistant; PCP Family Medicine
DX: S10.96XA Insect bite of unspecified part of neck, initial encounter (principal); L08.9 Local infection of the skin and subcutaneous tissue, unspecified; W57.XXXA Bitten or stung by nonvenomous insect and other nonvenomous arthropods, initial encounter; F17.210 Nicotine dependence, cigarettes, uncomplicated
CPT/HCPCS: 96372; 99284; J0696; J1100

== ENCOUNTER → 2023-12-01 16:39 | Outpatient (BNVA) | payer MEDICAID, SELFPAY | PROVIDERS: PCP Family Medicine; Visit Provider Emergency Medicine | DX: J02.9 Acute pharyngitis, unspecified (principal) | CPT/HCPCS: 87071; 87880 ==

== ENCOUNTER → 2024-05-01 10:11 | Outpatient (BNVA) | payer MEDICAID, SELFPAY | PROVIDERS: PCP Family Medicine; Visit Provider Nurse Practitioner | DX: R39.9 Unspecified symptoms and signs involving the genitourinary system (principal) | CPT/HCPCS: 81000 ==

== ENCOUNTER 2025-04-07 07:55 | Emergency (ER) | payer MEDICAID, SELFPAY ==
--- NOTE | 2025-04-07 08:04 | XRR_ITS ---
PROCEDURE INFORMATION: Exam: XR Chest Exam date and time: 04/07/2025 8:15 AM Age: 49 years old Clinical indication: Cough and dyspnea and shortness of breath; Additional info: Dyspnea/cough TECHNIQUE: Imaging protocol: Radiologic exam of the chest. Views: 1 view. COMPARISON: CT angio chest w abd pel w con 06/29/2021 11:41 PM FINDINGS: Lungs: There are mildly increased interstitial opacities present in the lower jhonny thoraces bilaterally, findings may represent atelectasis or parenchymal scarring. However, mild pulmonary edema could have this appearance. Pleural spaces: Unremarkable. No pleural effusion. No pneumothorax. Heart/Mediastinum: Unremarkable. No cardiomegaly. Bones/joints: Unremarkable. XR/XR chest 1V portable [id number] IMPRESSION: Increased interstitial opacities in the lower jhonny thoraces could represent atelectasis or parenchymal scarring although mild pulmonary edema could have this appearance.
[2025-04-07 08:12] VITALS: BP 165/74; PULSE 76; RESP 18; TEMP 36.7; O2SAT 96; BMI 38.9
[2025-04-07 08:37] LABS: Basophils # 0.1 10^3/uL (0.0-0.1); Basophils % 0.7 %; Eosinophils # 0.4 10^3/uL (0.0-0.8); Hematocrit 43.6 % (36-47); Lymphocytes # 4.3 10^3/uL (0.8-4.8); Lymphocytes % 48.7 %; Mean Corpuscular HGB Conc 32.3 g/dL (30-55); Mean Corpuscular Hemoglobin 31.5 pg (27-33); Mean Corpuscular Volume 97.3 fl (85-98); Mean Platelet Volume 8.5 fL (7.4-10.4); Monocytes # 0.5 10^3/uL (0.2-0.9); Monocytes % 5.6 %; Neutrophils # 3.55 10^3/uL (1.8-7.7); Neutrophils % 40.8 %; Nucleated Red Blood Cells % 0 %; Platelet Count 308 10^3/cmm (157-399); Red Blood Count 4.48 10^6/uL (3.85-5.65); Red Cell Distribution Width 13.2 % (12.1-15.1); White Blood Count 8.72 10^3/uL (3.29-11.43)
[2025-04-07 09:01] LABS: Alanine Aminotransferase 24 U/L (0-33); Albumin Level 3.9 g/dL (3.5-5.2); Alkaline Phosphatase 112 U/L (35-105); Anion Gap 17.2 (5-19); Aspartate Amino Transferase 23 U/L (0-32); Blood Urea Nitrogen 9 mg/dL (6-20); Carbon Dioxide 25 mmol/L (22-29); Chloride 101 mmol/L (98-107); Creatinine Clr Calc Pharmacy 95.8227; Globulin 3.2 g/dL (1.3-4.6); Glomerular Filtration Rate 76.2 mL/min (90-130); Glucose 107 mg/dL (65-115); Osmolality Calculated 287 mOsm/kg (285-295); Potassium 4.2 mmol/L (3.5-5.1); Sodium 139 mmol/L (136-145); Total Bilirubin 0.3 mg/dL (0.15-1.2); Total Protein 7.1 g/dL (6.6-8.7)
[2025-04-07 09:15] LABS: Slide Review Slide Review Perform
--- NOTE | 2025-04-07 09:33 | ED_ITS ---
HPI - SOB/Dyspnea 2 General: Chief Complaint: Shortness of Breath/Dyspnea Stated Complaint: sob Time Seen by Provider: 04/07/25 08:02 History of Present Illness: HPI Narrative: 49-year-old female presents emergency ro om complaining of shortness of breath worse with exertion she does not have any chest discomfort. She has a history of a splenic vein thrombosis for which at one time she was on warfarin she was lost to follow-up and stopped the medication and has been off for a couple of years now. She is concerned she may have developed more clots or even a pulmonary embolism. She denies any fever sweats chills or productive cough or chest pain. Shortness of breath been progressively worsening for the last 3 days. Associated symptoms: Deny abdominal pain, chest congestion, chest pain or fever(s) Related Data Previous Rx's ?Medication ?Instructions ?Recorded benzonatate 100 mg capsule 100 mg PO TID PRN cough #90 caps 08/24/24 cephalexin 500 mg capsule 500 mg PO TID 7 days #21 cap s 08/24/24 methylprednisolone 4 mg tablets in See Rx Instructions PO PER PKG DIR 08/24/24 a dose pack (Medrol (Tristen)) #21 ea levofloxacin 750 mg tablet 750 mg PO DAILY 7 days #7 t abs 04/07/25 Allergies Allergy/AdvReac Type Severity Reaction Status Date / Time NSAIDS (Non-Steroidal Allergy ALGY-Anaphy Verified 08/24/24 14:53 Anti-Inflamma laxis Review of Systems 2 Const: Denies: fever(s) or chills Card: Denies: chest pain Resp: Reports: dyspnea and non-productive cough; Denies: chest congestion GI: Denies: abdominal pain : Denies: dysuria, urinary frequency or urinary urgency Musc: Denies: neck pain or back pain Skin/Breast: Denies: rash PFSH ED 2 PFSH: Medical History Psychiatric care Other stimulant dependence, uncomplicated F15.20 Other stimulant use disorder, methamphetamine type, severe, dependence No pertinent family history Surgical History H/O: hysterectomy Hx of tubal ligation Social History (Reviewed 04/07/25 @ 10:31 by BROOKS [place] Smoking and tobacco/nicotine status: unknown if used tobacco/nicotine Second hand smoke exposure: Yes Alcohol intake: never Substance/Drug Use: former Physical Exam 2 Const: GENERAL APPEARANCE: cooperative ORIENTATION/CONSCIOUSNESS: Yes awake, Yes oriented to person, Yes oriented to place and Yes oriented to time HENMT: COMMON NORMALS: normocephalic, atraumatic and hearing grossly normal bilaterally HEAD & SCALP: normocephalic and atraumatic Resp: COMMON NORMALS: normal respiratory effort, No retractions, No use of accessory muscles and clear to auscultation bilaterally AUSCULTATION: clear to auscultation bilaterally Cardio: COMMON NORMALS: regular rate, regular rhythm and No murmurs present (Cardio) RATE: regular rate RHYTHM: regular rhythm GI: COMMON NORMALS: Soft to palpation and No hepatosplenomegaly present A USCULTATION: Yes normoactive bowel sounds PALPATION: Yes Soft to palpation, No Tenderness to palpation present (GI), No Guarding due to palpation present (GI) and Yes No hepatosplenomegaly present Extremity: COMMON NORMALS: normal to inspection, capillary refill normal, no clubbing, cyanosis or edema, no calf tenderness and no pedal edema Neuro: SENSORIUM/ORIENTATION: Yes oriented to person, Yes oriented to place and Yes oriented to time Skin: COMMON NORMALS: no rashes or lesions noted GENERAL SKIN EXAM: no rashes or lesions noted Course 2 Vital Signs: Vital signs: Vital Signs Temperature 98.1 F 04/07/25 08:12 Pulse Rate 74 04/07/25 10:03 Respiratory Rate 16 04/07/25 10:03 Blood Pressure 138/47 04/07/25 10:03 Pulse Oximetry 93 04/07/25 10:03 Oxygen Delivery Me thod Room Air 04/07/25 10:03 MDM - SOB/Dyspnea Medical Decision Making Initially patient was quite agreeable however she became very agitated demanded to leave and felt she had been here too long. The nurse and I both attempted to encourage patient to stay for the CTA of the chest however she declined. Ultimately she left. I was able to discuss with her before she left advised her she could return to the emergency room at any point if she wanted. Prescription given for Levaquin. Am concerned about the risk of PE given her history of splenic vein thrombosis that she was never cleared to stop her anticoagulant. Medical Records I reviewed the patient's medical records. Lab Data I reviewed the patient's lab results. 04/07/25 08:32 04/07/25 08:32 Labs/Radiology: Radiology Impressions Chest X-Ray 04/07/25 08:04 IMPRESSION: Increased interstitial opacities in the lower jhonny thoraces could represent atelectasis or parenchymal scarring although mild pulmonary edema could have this appearance. Laboratory Results WBC 8.72 10^3/uL (3.29-11.43) 04/07/25 08:32 RBC 4.48 10^6/uL (3.85-5.65) 04/07/25 08:32 Hgb 14.10 g/dL (11.27-16.99) 04/07/25 08:32 Hct 43.6 % (36-47) 04/07/25 08:32 MCV 97.3 fl (85-98) 04/07/25 08:32 MCH 31.5 pg (27-33) 04/07/25 08:32 MCHC 32.3 g/dL (30-55) 04/07/25 08:32 RDW 13.2 % (12.1-15.1) 04/07/25 08:32 Plt Count 308 10^3/cmm (157-399) 04/07/25 08:32 MPV 8.5 fL (7.4-10.4) 04/07/25 08:32 Neut % (Auto) 40.8 % 04/07/25 08:32 Lymph % (Auto) 48.7 % 04/07/25 08:32 [place] % (Auto) 5.6 % 04/07/25 08:32 Eos % (Auto) 4.0 % 04/07/25 08:32 Baso % (Auto) 0.7 % 04/07/25 08:32 Neut # (Auto) 3.55 10^3/uL (1.8-7.7) 04/07/25 08:32 Lymph # (Auto) 4.3 10^3/uL (0.8-4.8) 04/07/25 08:32 [place] # (Auto) 0.5 10^3/uL (0.2-0.9) 04/07/25 08:32 Eos # (Auto) 0.4 10^3/uL (0.0-0.8) 04/07/25 08:32 Baso # (Auto) 0.1 10^3/uL (0.0-0.1) 04/07/25 08:32 Nucleated RBC % (auto) 0 % 04/07/25 08:32 Nucleated RBCs # 0.0 /100WBC 04/07/25 08:32 PT 12.20 SECONDS (12.1-14.9) 04/07/25 08:32 INR 0.85 (0.8-1.2) 04/07/25 08:32 Sodium 139 mmol/L (136-145) 04/07/25 08:32 Potassium 4.2 mmol/L (3.5-5.1) 04/07/25 08:32 Chloride 101 mmol/L (98-107) 04/07/25 08:32 Carbon Dioxide 25 mmol/L (22-29) 04/07/25 08:32 Anion Gap 17.2 (5-19) 04/07/25 08:32 BUN 9 mg/dL (6-20) 04/07/25 08:32 Creatinine 0.8 mg/dL (0.5-0.9) 04/07/25 08:32 GFR Calculation 76.2 mL/min (90-130) L 04/07/25 08:32 Glucose 107 mg/dL (65-115) 04/07/25 08:32 Calculated Osmolality 287 mOsm/kg (285-295) 04/07/25 08:32 Calcium 9.0 mg/dL (8.5-10.5) 04/07/25 08:32 Total Bilirubin 0.3 mg/dL (0.15-1.2) 04/07/25 08:32 AST 23 U/L (0-32) 04/07/25 08:32 ALT 24 U/L (0-33) 04/07/25 08:32 Alkaline Phosphatase 112 U/L (35-105) H 04/07/25 08:32 Total Protein 7.1 g/dL (6.6-8.7) 04/07/25 08:32 Albumin 3.9 g/dL (3.5-5.2) 04/07/25 08:32 Globulin 3.2 g/dL (1.3-4.6) 04/07/25 08:32 All radiology interpretation(s) finalized by discharge Discharge Plan Discharge Patient Disposition: Home Clinical Impression: Community acquired pneumonia, Shortness of breath Condition: Stable Prescriptions: New levofloxacin 750 mg tablet 750 mg PO DAILY 7 Days Qty: 7 0RF No Action cephalexin 500 mg capsule 500 mg PO TID 7 Days Qty: 21 0RF methylprednisolone [Medrol (Tristen)] 4 mg tablets,dose pack See Rx Instructions PO PER PKG DIR Qty: 21 0RF Rx Instructions: PO PER PKG DIR benzonatate 100 mg capsule 100 mg PO TID PRN (Reason: cough) Qty: 90 0RF Discharge Orders: Discharge ED (Routine); Ordered 04/07/25 Ordered By: Adair Lloyd Referrals: Pavel Collins, [Primary Care Provider, Family Practice] Discharge Diet: Usual diet Discharge Activity: Increase activity as tolerated Patient Instructions: Opioid Safety, Pain Management Activity Restrictions/Additional Instructions: Thank you for choosing [facility] for your healthcare needs today. It is very important that you follow up as instructed or that you return to the Emergency Department should you have concerns or if your condition changes or worsens in any way. You were seen in the emergency room with complaints of shortness of breath on the chest x-ray there is a question of early infiltrates possibly reflecting a pneumonia. Because of your history of previous venous thrombosis we had recommended you get a CTA of your chest to further evaluate including evaluating for possible pulmonary embolism. You requested to leave prior to the test being done. You are given antibiotics to cover for the possibility of pneumonia. If you change your mind or worsening symptoms you are welcome return to complete the evaluation. Print Language: Paraguayan Coding Level of Care Code ED Telecom Billing Analyst for Kerline Drake
[2025-04-07 10:03] VITALS: BP 138/47; PULSE 74; RESP 16; O2SAT 93
[2025-04-07 10:16] LABS: INR 0.85 (0.8-1.2)
== END 2025-04-07 10:57 | disposition home or self-care (01) ==
PROVIDERS: Emergency Provider Family Medicine; PCP Family Medicine
DX: J18.9 Pneumonia, unspecified organism (principal); R06.02 Shortness of breath
CPT/HCPCS: 36415; 71045; 80053; 85025; 85610; 99284

== ENCOUNTER → 2025-07-31 15:30 | Outpatient (BNVA) | payer MEDICAID, SELFPAY | DX: Z76.89 Persons encountering health services in other specified circumstances (principal) | CPT/HCPCS: 80053; 83036; 84443; 85025 ==

== ENCOUNTER 2025-08-02 18:19 | Emergency (ER) | payer MEDICAID, SELFPAY ==
[2025-08-02 18:23] VITALS: BP 170/75; PULSE 73; RESP 18; TEMP 36.9; O2SAT 96; BMI 38.9
--- OUTSIDE RECORDS SUMMARY | 2025-08-02 18:24 | XMS_ITS | Clinical Summary ---
Author Organization [facility] Address [address] [place] [address] Phone Care Team Providers Care Container Washer Machine Name Role Phone Unavailable Primary Care Provider Unavailabl e Allergies Active Allergy Reactions Criticality Noted Date Comments Nsaids (Non-Steroidal Anti-I nflammatory Drug) Anaphylaxis High 05/21/2016 Medications pramoxine-camph or-zinc acetate (CALADRYL CLEAR) Lotion Apply to affected area 4 times daily as needed for Rash or Redness. Active Active Problems Problem Noted Date Diagnosed Date Cigarette dependence 05/21/2016 Social History Tobacco Use Types Packs/Day Years Used Date Smoking Tobacco: Every Day Cigarettes Smokeless Tobacco: Never Alcohol Use Standard Drinks/Week Comments No 0 (1 standard drink = 0.6 oz pur e alcohol) Comments No Sex and Gender Information Value Date Recorded Sex Assigned at Not on file Legal Sex Female 9:35 AM CDT Gender Identity Not on file Sexual Orientation Not on file Last Filed Vital Signs Vital Sign Reading Time Taken Comments Blood Pressure 127/58 05/21/2016 9:47 AM CDT Pulse - - Temperature 37.6 C (99.7 F) 05/21/2016 9:47 AM CDT Respiratory Rate 14 05/21/2016 9:47 AM CDT Oxygen Saturation 97% 05/21/2016 9:47 AM CDT Inhaled Oxygen Concentration - - Weight 95.3 kg (210 lb 3.2 oz) 05/21/2016 9:47 A M CDT Height 160 cm (5' 3 ) 05/21/2016 9:47 AM CDT Body Mass Index 37.24 05/21/2016 9:47 AM CDT Plan of Treatment Health Maintenance Due Date Last Done Comments DTAP/TDAP/TD VACCINES (1 - Tdap) 1994 HEPATITIS B VACCINES (1 of 3 - 19+ 3-dose series) 11/20 HPV/Cotest (21-29) 1996 CERVICAL CANCER SCREENING 2005 HPV/Cotest (30-65) 2005 PAP SMEAR 2005 BREAST CANCER SCREENING 2015 COLORECTAL SCREENING 2020 Colorectal Cancer Screening 2020 FIT-DNA Q 3 years 2020 FIT/FOBT Q 1 year 2020 Flex Sig/CT Colonography Q 5 years 2020 INFLUENZA VACCINE (#1) 2025
--- NOTE | 2025-08-02 18:26 | ECG_ITS ---
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 Measurements Intervals [place] Rate: 72 P: 62 KS: 137 QRS: 5 QRSD: 80 T: 40 QT: 395 QTc: 434 Interpretive Statements SINUS RHYTHM Compared to ECG 06/29/2021 21:40:16 Short KS interval no longer present Electronically Signed On 08-02-2025 20:14:58 CDT by Sylvester Alex M.D. [email or web address]
--- NOTE | 2025-08-02 19:53 | XRR_ITS ---
PROCEDURE INFORMATION: Exam: XR Chest Exam date and time: 08/02/2025 8:48 PM Age: 49 years old Clinical indication: Shortness of breath; C/O SOB TECHNIQUE: Imaging protocol: Radiologic exam of the chest. Views: 1 view. COMPARISON: 1. CR XR chest 1V portable [id number] 04/07/2025 8:15 AM 2. Chest radiograph performed on 06/29/2021 at 9:42 p.m. FINDINGS: Lungs: Unremarkable. No consolidation. Stable left lateral nodular opacity from multiple remote priors. Pleural spaces: Unremarkable. No pleural effusion. No pneumothorax. Heart/Mediastinum: Unremarkable. No cardiomegaly. Bones/joints: Unremarkable. XR/XR chest 1V portable [id number] IMPRESSION: No acute findings.
--- NOTE | 2025-08-02 20:03 | USR_ITS ---
PROCEDURE INFORMATION: Exam: US Duplex Left Lower Extremity Veins, Limited Exam date and time: 08/02/2025 8:28 PM Age: 49 years old Clinical indication: Pain; Leg, upper and leg, lower; Left; Additional info: Left leg pain and swelling TECHNIQUE: Imaging protocol: Real-time duplex ultrasound of the left extremity with 2-D durbin scale, color Doppler flow and spectral waveform analysis including responses to compression and other maneuvers (when performed) with image documentation. Limited exam focused on the left lower extremity veins. COMPARISON: No relevant prior studies available. FINDINGS: Left deep veins: Unremarkable. The common femoral, femoral, proximal profunda femoral and popliteal veins are patent without thrombus. Normal Doppler waveforms. Normal compressibility and/or augmentation response. Superficial veins: Greater saphenous vein at the saphenofemoral junction is patent without thrombus. Soft tissues: Unremarkable. US/[place] [id number] IMPRESSION: No evidence of deep vein thrombosis.
[2025-08-02 21:01] LABS: Hematocrit 41.4 % (36-47); Hemoglobin 13.40 g/dL (11.27-16.99); Mean Corpuscular HGB Conc 32.4 g/dL (30-55); Mean Corpuscular Hemoglobin 31.5 pg (27-33); Mean Corpuscular Volume 97.2 fl (85-98); Platelet Count 330 10^3/cmm (157-399); Red Blood Count 4.26 10^6/uL (3.85-5.65); White Blood Count 11.15 10^3/uL (3.29-11.43)
--- NOTE | 2025-08-02 21:03 | XRR_ITS ---
PROCEDURE INFORMATION: Exam: XR Left Femur Exam date and time: 08/02/2025 9:04 PM Age: 49 years old Clinical indication: C/O left thigh pain without injury. ; Additional info: L thigh pain TECHNIQUE: Imaging protocol: Radiologic exam of the left femur. Views: 2 views. COMPARISON: [place] [id number] 08/02/2025 8:28 PM FINDINGS: Bones/joints: Unremarkable. No acute fracture. Soft tissues: Unremarkable. XR/XR femur LT min 2V* [id number] IMPRESSION: No acute findings.
--- NOTE | 2025-08-02 21:06 | W.ED.EXTPRO ---
HPI - Extremity Problem General: Chief complaint: Extremity Problem,Nontraumatic Stated complaint: SOB pain in L leg Time Seen by Provider: 08/02/25 20:30 History of Present Illness: Patient is a 49-year-old female presenting with left leg pain and shortness of breath. The leg pain began approximately one week ago, initially feeling like a bruise on the left knee area, though no visible bruising was present. The pain has progressively worsened and is now described as an aching pain that persists even at rest, which is a new development. Patient reports that previously the pain would ease with ambulation, but today it has been aching constantly. She also notes pain in her groin area. The patient experiences increased pain when standing up which 'takes her breath away' but improves somewhat with walking. Of note, the patient has a history of previous blood clot, raising her concern about possible recurrence. Additionally, she reports significant low back pain, pain in her shoulder blades, and progressive shortness of breath that worsens with exertion. Patient was noted to be quite short of breath after walking to the ultrasound department. She also reports cough productive of 'foamy' sputum and some wheezing. Related Data Previous Rx's ?Medication ?Instructions ?Recorded albuterol sulfate 90 mcg/actuation 2 inh inhalation Q4H PRN shortness 08/02/25 aerosol inhaler of breath or wheezing #6.7 grams doxycycline hyclate 100 mg tablet 100 mg PO BID 7 days #14 tabs 08/02/25 methylprednisolone 4 mg tablets in See Rx Instructions PO .COMPLEX 08/02/25 a dose pack (Medrol (Tristen)) #21 ea Allergies Allergy/AdvReac Type Severity Reaction Status Date / Time NSAIDS (Non-Steroidal Allergy ALGY-Anaphy Verified 08/02/25 18:31 Anti-Inflamma laxis Review of Systems Narrative: Constitutional: Denies fever Respiratory: Positive for shortness of breath, cough productive of 'foamy' sputum, and wheezing Musculoskeletal: Positive for left leg pain described as aching, worse at rest. Also reports low back pain and shoulder blade pain Neurological: Denies numbness or tingling in the affected leg [facility] ED PFSH: Medical History On warfarin therapy Psychiatric care Other stimulant dependence, uncomplicated F15.20 Other stimulant use disorder, methamphetamine type, severe, dependence No pertinent family history Surgical History Hx of cholecystectomy H/O: hysterectomy 2002 Hx of tubal ligation Social History Smoking and tobacco/nicotine status: current every day tobacco/nicotine user Second hand smoke exposure: Yes Alcohol intake: never Substance/Drug Use: former Physical Exam Const: COMMON NORMALS: no acute distress GENERAL APPEARANCE: cooperative; not ill appearing and not frail appearing HENMT: COMMON NORMALS: normocephalic, atraumatic and Normal external nose present HEAD & SCALP: normocephalic and atraumatic FACE & SINUS: normal facial exam and face symmetric NOSE: Normal external nose present Eye: COMMON NORMALS: Equal, round and reactive pupils present and EOMs intact bilaterally PUPIL: Yes Equal, round and reactive pupils present Neck/C-Spine: GENERAL: Yes trachea midline Chest: CHEST: Yes Symmetrical chest wall rise Resp: COMMON NORMALS: normal respiratory effort, No retractions, No use of accessory muscles and clear to auscultation bilaterally AUSCULTATION: clear to auscultation bilaterally Cardio: COMMON NORMALS: regular rate and regular rhythm RATE: regular rate RHYTHM: regular rhythm GI: COMMON NORMALS: Normal to inspection, nondistended, normoactive bowel sounds present Extremity: COMMON NORMALS: no pedal edema NARRATIVE EXTREMITY EXAM: some diffuse tenderness to LLE. No deformity. Pulses and sensation normal. Neuro: MELISSA COMA SCALE: document GCS findings Melissa coma scale eye opening: Spontaneous Melissa coma scale verbal response: Orientated Melissa coma scale motor response: Obey commands Melissa coma scale total score: 15 SENSORY EXAM: Yes extremities (intact) Psych: COMMON NORMALS: speech normal SPEECH: Yes normal speech Skin: COMMON NORMALS: no rashes or lesions noted GENERAL SKIN EXAM: no rashes or lesions noted Course Vital Signs: Vital signs: Vital Signs Temperature 98.5 F 08/02/25 18:23 Pulse Rate 74 08/02/25 22:21 Respiratory Rate 18 08/02/25 22:21 Blood Pressure 106/77 08/02/25 22:21 Pulse Oximetry 92 08/02/25 22:21 Oxygen Delivery Me thod Room Air 08/02/25 22:21 MDM - Extremity (Nontraumatic) Medical Decision Making 49-year-old female. She has 2 complaints. The 1st of that as left thigh pain and leg pain. She has had a DVT in the past, so this concerned her. She has also had a cough with some foamy sputum. She is afebrile here. Vitals were stable. Saturations are adequate on room air. Her chest x-ray is negative. Venous duplex of the extremity is negative. X-ray is normal. Her D-Dimer is 0.4. Troponin is undetectable x 2. No acute EKG changes. She will be treated for acute bronchitis. She will be covered with antibiotics. Given Albuterol. Tapering dose of steroid, which will hopefully help with seemingly radicular pain to her left thigh. She knows to return for any worsening symptoms. She is stable for discharge. Lab Data 08/02/25 20:30 08/02/25 20:30 Radiology Impressions Chest X-Ray 08/02/25 19:53 IMPRESSION: No acute findings. Venous Duplex 08/02/25 20:03 IMPRESSION: No evidence of deep vein thrombosis. Femur X-Ray 08/02/25 21:03 IMPRESSION: No acute findings. Laboratory Results WBC 11.15 10^3/uL (3.29-11.43) 08/02/25 20:30 RBC 4.26 10^6/uL (3.85-5.65) 08/02/25 20:30 Hgb 13.40 g/dL (11.27-16.99) 08/02/25 20:30 Hct 41.4 % (36-47) 08/02/25 20:30 MCV 97.2 fl (85-98) 08/02/25 20:30 MCH 31.5 pg (27-33) 08/02/25 20:30 MCHC 32.4 g/dL (30-55) 08/02/25 20:30 RDW 14.2 % (12.1-15.1) 08/02/25 20:30 Plt Count 330 10^3/cmm (157-399) 08/02/25 20:30 MPV 8.7 fL (7.4-10.4) 08/02/25 20:30 Lymph % (Auto) Not Reportable 08/02/25 20:30 [place] % (Auto) Not Reportable 08/02/25 20:30 Lymph # (Auto) Not Reportable 08/02/25 20:30 [place] # (Auto) Not Reportable 08/02/25 20:30 Total Counted 100 (0-100) 08/02/25 20:30 Atypical Lymphs % 5.0 % (0-5) 08/02/25 20:30 Absolute Neutrophils 5.5 10^3/cmm (1.4-6.5) 08/02/25 20:30 Segmented Neutrophils 49 % 08/02/25 20:30 Band Neutrophils 0.0 % 08/02/25 20:30 Absolute Lymphocytes 5.0 10^3/cmm (1.2-3.4) H 08/02/25 20:30 Lymphocytes (Manual) 40 % 08/02/25 20:30 Monocytes (Manual) 4.0 % 08/02/25 20:30 Absolute Monocytes 0.4 10^3/cmm (0.1-0.6) 08/02/25 20:30 Eosinophils (Manual) 2 % 08/02/25 20:30 Absolute Eosinophils 0.2 10^3/cmm (0.0-0.7) 08/02/25 20:30 Basophils (Manual) 0.0 % 08/02/25 20:30 Absolute Basophils 0.0 10^3/cmm (0.0-0.2) 08/02/25 20:30 Platelet Estimate Normal (Normal) 08/02/25 20:30 Macrocytosis Trace 08/02/25 20:30 D-Dimer 0.43 ug/mLFEU (0-0.59) 08/02/25 20:30 Sodium 140 mmol/L (136-145) 08/02/25 20:30 Potassium 4.0 mmol/L (3.5-5.1) 08/02/25 20:30 Chloride 103 mmol/L (98-107) 08/02/25 20:30 Carbon Dioxide 24 mmol/L (22-29) 08/02/25 20:30 Anion Gap 17.0 (5-19) 08/02/25 20:30 BUN 8 mg/dL (6-20) 08/02/25 20:30 Creatinine 0.7 mg/dL (0.5-0.9) 08/02/25 20:30 GFR Calculation 88.9 mL/min (90-130) L 08/02/25 20:30 Glucose 95 mg/dL (65-115) 08/02/25 20:30 Calculated Osmolality 288 mOsm/kg (285-295) 08/02/25 20:30 Calcium 9.1 mg/dL (8.5-10.5) 08/02/25 20:30 Total Bilirubin 0.2 mg/dL (0.15-1.2) 08/02/25 20:30 AST 12 U/L (0-32) 08/02/25 20:30 ALT 11 U/L (0-33) 08/02/25 20:30 Alkaline Phosphatase 118 U/L (35-105) H 08/02/25 20:30 Troponin T Baseline < 6 ng/L (0-10) 08/02/25 20:30 Troponin T 120 Minute < 6.0 ng/L (0-10) 08/02/25 22:13 Delta Troponin T 0 ABS# (0-10) 08/02/25 22:13 Total Protein 7.5 g/dL (6.6-8.7) 08/02/25 20:30 Albumin 4.0 g/dL (3.5-5.2) 08/02/25 20:30 Globulin 3.5 g/dL (1.3-4.6) 08/02/25 20:30 All radiology interpretation(s) finalized by discharge Discharge Plan Discharge Patient Disposition: Home Clinical Impression: Acute bronchiolitis, Thigh pain Condition: Stable Prescriptions: New albuterol sulfate 90 mcg/actuation HFA aerosol inhaler 2 inh INHALATION Q4H PRN (Reason: shortness of breath or wheezing) Qty: 6.7 1RF doxycycline hyclate 100 mg tablet 100 mg PO BID 7 Days Qty: 14 0RF methylprednisolone [Medrol (Tristen)] 4 mg tablets,dose pack See Rx Instructions .ROUTE .COMPLEX Qty: 21 0RF Rx Instructions: orally per package directions Discharge Orders: Discharge ED (Routine); Ordered 08/02/25 Ordered By: Mark Jasso Referrals: Pat Holland NP [Primary Care Provider, Family Practice] - 1-3 days Patient Instructions: Acute Bronchitis (ED), Hip Pain (ED), Opioid Safety, Pain Management, Patient Portal & Zeny Instructions Activity Restrictions/Additional Instructions: Medication as directed. Steroid should help with both leg/thigh pain and shortness of breath over time. Call your doctor Monday for a follow-up appointment. Return for worsening symptoms despite treatment. Use the inhaler scheduled every 4 hours while awake for the first 24 hours, then as needed following that. Print Language: Hebrew Coding Level of Care Code ED Internal Combustion Engine Inspector for Kerline Drake
[2025-08-02 21:14] LABS: Slide Review Slide Review Perform
[2025-08-02 21:23] LABS: Alanine Aminotransferase 11 U/L (0-33); Albumin Level 4.0 g/dL (3.5-5.2); Alkaline Phosphatase 118 U/L (35-105); Anion Gap 17.0 (5-19); Aspartate Amino Transferase 12 U/L (0-32); Blood Urea Nitrogen 8 mg/dL (6-20); Calcium 9.1 mg/dL (8.5-10.5); Carbon Dioxide 24 mmol/L (22-29); Chloride 103 mmol/L (98-107); Creatinine Clr Calc Pharmacy 109.5116; Globulin 3.5 g/dL (1.3-4.6); Glucose 95 mg/dL (65-115); Osmolality Calculated 288 mOsm/kg (285-295); Potassium 4.0 mmol/L (3.5-5.1); Sodium 140 mmol/L (136-145); Total Protein 7.5 g/dL (6.6-8.7)
[2025-08-02 21:38] LABS: Absolute Segmented Neutrophil 5.5 10/cmm (1.6-7.1); Atypical Lymphs 5.0 % (0-5); Band Neutrophils Absolute 0.0 10^3/cmm (0.0-1.2); Total Cells Counted 100 (0-100)
[2025-08-02 21:39] LABS: Macrocytosis Trace
[2025-08-02 21:47] VITALS: PULSE 78; RESP 18; O2SAT 97
[2025-08-02 22:01] LABS: Troponin(5th) Baseline < 6 ng/L (0-10)
[2025-08-02] MEDS: methylPREDNISolone sod succ 125 mg/2 mL INJ IVP (22:15)
[2025-08-02] MEDS: ondansetron 2 mg/ML SDV 2 mL 4 MG IVP (22:17)
[2025-08-02] MEDS: morphine 4 mg/mL SDV 1 mL IVP (22:19)
[2025-08-02 22:21] VITALS: BP 106/77; PULSE 74; RESP 18; O2SAT 92
[2025-08-02 22:57] LABS: Troponin 5 2HR < 6.0 ng/L (0-10); Troponin 5 2HR Delta 0 ABS# (0-10)
== END 2025-08-02 22:41 | disposition home or self-care (01) ==
PROVIDERS: Emergency Provider Emergency Medicine
DX: J21.9 Acute bronchiolitis, unspecified (principal); M79.605 Pain in left leg; Z72.0 Tobacco use; Z79.01 Long term (current) use of anticoagulants
CPT/HCPCS: 36415; 71045; 73552; 80053; 84484; 85007; 85025; 85378; 93005; 93971; 94640; 96374; 96375; 99285; J2270; J2405; J2919; J9999

== ENCOUNTER 2025-08-09 13:08 | Emergency (ER) | payer MEDICAID, SELFPAY ==
--- OUTSIDE RECORDS SUMMARY | 2025-08-09 13:14 | XMS_ITS | Clinical Summary ---
Author Organization [facility] Address [address] [place] [address] Phone Care Team Providers Care Lens Silverer Name Role Phone Unavailable Primary Care Provider [...]
[2025-08-09 13:19] VITALS: BP 162/78; PULSE 79; RESP 18; TEMP 36.7; O2SAT 96
--- NOTE | 2025-08-09 13:35 | XRR_ITS ---
PROCEDURE INFORMATION: Exam: XR Left Tibia and Fibula Exam date and time: 08/09/2025 1:46 PM Age: 49 years old Clinical indication: Pain; Lower leg; Bilateral; Additional info: Pig bite TECHNIQUE: Imaging protocol: Radiologic exam of the left tibia and fibula. Views: 2 views. COMPARISON: US CV venous duplex [facility] [id number] 08/02/2025 8:28 PM FINDINGS: Bones/joints: No fractures. Superior patellar bone spur. Dorsal calcaneal bone spur. Soft tissues: Normal. XR/XR tibia fibula LT 2V [id number] IMPRESSION: No acute findings.
--- NOTE | 2025-08-09 13:35 | XRR_ITS ---
PROCEDURE INFORMATION: Exam: XR Right Tibia and Fibula Exam date and time: 08/09/2025 1:44 PM Age: 49 years old Clinical indication: Pain; Lower leg; Bilateral; Additional info: Bilateral lower ext pain/brusing after being attacked/bitten by pig TECHNIQUE: Imaging protocol: Radiologic exam of the right tibia and fibula. Views: 2 views. COMPARISON: No relevant prior studies available. FINDINGS: Bones/joints: No fractures. Patellar and calcaneal bone spurs. Soft tissues: Normal. XR/XR tibia fibula RT 2V [id number] IMPRESSION: No acute findings.
--- NOTE | 2025-08-09 13:36 | W.ED.WOUNDLC ---
HPI - Wound/Laceration General: Chief Complaint: Wound/Laceration Stated Complaint: Attacked by a Pig both legs Time Seen by Provider: 08/09/25 13:19 History of Present Illness: Patient is a 49-year-old female that was evaluating a manage her pet [place] to [place] [address], 2 days ago, that was aggressive, and bit her on the left lateral anterior proximal anterior leg, and right medial anterior proximal lower leg. She did go to urgent care prior to the visit, and received Augmentin, and tetanus shot. She is here for prophylaxis rabies. She denies any pain. She does have superficial open wounds. Associated symptoms: Denies fever(s), nausea or vomiting Related Data Home Medications ?Medication ?Instructions ?Recorded ?Confirmed doxycycline hyclate 100 mg tablet 100 mg PO BID 08/09/25 08/09/25 metformin 500 mg tablet,extended 500 mg PO DAILY 08/09/25 08/09/25 release 24 hr Previous Rx's ?Medication ?Instructions ?Recorded albuterol sulfate 90 mcg/actuation 2 inh inhalation Q4H PRN shortness 08/02/25 aerosol inhaler of breath or wheezing #6.7 grams methylprednisolone 4 mg tablets in See Rx Instructions PO .COMPLEX 08/02/25 a dose pack (Medrol (Tristen)) #21 ea amoxicillin 875 mg-potassium 1 tab PO BID 10 days #20 tabs 08/09/25 clavulanate 125 mg tablet Allergies Allergy/AdvReac Type Severity Reaction Status Date / Time NSAIDS (Non-Steroidal Allergy ALGY-Anaphy Verified 08/09/25 12:27 Anti-Inflamma laxis Review of Systems Const: Denies: fever(s), change in appetite or fatigue Eyes: Denies: change in vision, blurry vision or eye discharge ENMT: Denies: ear discharge or nasal discharge Card: Denies: chest pain or palpitations Resp: Denies: dyspnea, non-productive cough or wheezing GI: Denies: abdominal pain, nausea, vomiting or other (changes in appetite) Musc: Denies: extremity pain, extremity swelling, joint pain, joint swelling, joint redness, joint warmth, joint stiffness, limited range of motion or other (redness) Skin/Breast: Reports: erythema, skin tenderness, sores (2 day old pig bites, abrasions to both lower legs.), new lesions and other (tetanus is NOT up to date.); Denies: rash or pruritus Neuro: Denies: headache(s), numbness in extremities or weakness in extremities Psych: Denies: anxiety or depression PFSH ED PFSH: Medical History (Updated 08/09/25 @ 14:09 by KOLTON Borjas) On warfarin therapy Psychiatric care Other stimulant dependence, uncomplicated F15.20 Other stimulant use disorder, methamphetamine type, severe, dependence No pertinent family history Surgical History Hx of cholecystectomy H/O: hysterectomy 2001 Hx of tubal ligation Social History Smoking and tobacco/nicotine status: current every day tobacco/nicotine user Second hand smoke exposure: Yes Alcohol intake: never Substance/Drug Use: former Physical Exam Const: COMMON NORMALS: no acute distress, average body habitus and patient oriented x3 HENMT: COMMON NORMALS: normocephalic and atraumatic HEAD & SCALP: normocephalic and atraumatic Eye: COMMON NORMALS: Equal, round and reactive pupils present, EOMs intact bilaterally and conjunctivae normal CONJUNCTIVA: Yes conjunctivae normal PUPIL: Yes Equal, round and reactive pupils present Neck/C-Spine: COMMON NORMALS: full ROM and no lymphadenopathy Lymph: LYMPHATIC: no lymphadenopathy noted Chest: COMMONS NORMALS: normal inspection of the chest and normal palpation of entire chest wall Resp: COMMON NORMALS: normal respiratory effort, No retractions and clear to auscultation bilaterally AUSCULTATION: clear to auscultation bilaterally Cardio: COMMON NORMALS: regular rate and regular rhythm RATE: regular rate RHYTHM: regular rhythm GI: COMMON NORMALS: Normal to inspection, nondistended, normoactive bowel sounds present, Soft to palpation, non-tender and No hepatosplenomegaly present PALPATION: Yes Soft to palpation and Yes No hepatosplenomegaly present : COMMON NORMALS: Yes no CVA tenderness BLADDER/KIDNEY EXAM: Yes no CVA tenderness Back/Pelvis: COMMON NORMALS: no CVA tenderness Extremity: COMMON NORMALS: normal to inspection, full ROM and capillary refill normal Neuro: COMMON NORMALS: patient oriented x3 Skin: SKIN IMAGES (FEMALE):  1. Blue ecchymosis, superficial x 1 2. 3 red open superficial areas Course Vital Signs: Vital signs: Vital Signs Temperature 98.1 F 08/09/25 13:19 Pulse Rate 82 08/09/25 14:46 Respiratory Rate 18 08/09/25 13:19 Blood Pressure 147/99 08/09/25 14:46 Pulse Oximetry 99 08/09/25 14:46 Oxygen Delivery Me thod Room Air 08/09/25 13:19 MDM - Wound/Laceration Medical Decision Making Patient is a 49-year-old female that went to urgent care prior to arrival with 2-day old pig bite to proximal lower extremities. She was prescribed Augmentin by urgent care. She is here for rabies prophylaxis. Will give wound care, rabies prophylaxis. She did receive tetanus at urgent care. Medical Records I reviewed the patient's medical records. Lab Data Radiology Impressions Tibia/Fibula X-Ray 08/09/25 13:35 IMPRESSION: No acute findings. XR interpretation done by ED provider, pending radiology final review Discharge Plan Discharge Patient Disposition: Home Clinical Impression: Bitten by pig, initial encounter, Rabies exposure Condition: Stable Prescriptions: No Action amoxicillin-pot clavulanate 875-125 mg tablet 1 tab PO BID 10 Days Qty: 20 0RF metformin 500 mg tablet extended release 24 hr 500 mg PO DAILY doxycycline hyclate 100 mg tablet 100 mg PO BID albuterol sulfate 90 mcg/actuation HFA aerosol inhaler 2 inh INHALATION Q4H PRN (Reason: shortness of breath or wheezing) Qty: 6.7 1RF methylprednisolone [Medrol (Tristen)] 4 mg tablets,dose pack See Rx Instructions .ROUTE .COMPLEX Qty: 21 0RF Rx Instructions: orally per package directions Discharge Orders: Discharge ED (Routine); Ordered 08/09/25 Ordered By: Linda Araujo Referrals: Pat Holland NP [Primary Care Provider, Family Practice] Discharge Diet: Usual diet Discharge Activity: Resume usual activity Patient Instructions: Animal Bite (ED), Patient Portal & [facility] Instructions Activity Restrictions/Additional Instructions: --- Animal bites: Place mupirocin, Vaseline or get Xeroform gauze, cover with nonadherent dressing. -You will need to come back for ongoing rabies and immunoglobulin prophylaxis additional 4 times. Nurse has this schedule for you. -Take your Augmentin as prescribed by urgent care - You will need to follow directions for coming back here outpatient for rabies vaccination and immunoglobulin - Return to ED if you have worsening redness, swelling, fever greater than 100.4 Print Language: Arabic Coding Level of Care Code ED Circulation Clerk for Kerline Drake
[2025-08-09] MEDS: rabies IG 300 unit/mL SDV 1 mL 2220 UNIT IM (14:23)
[2025-08-09] MEDS: rabies vaccine 2.5 unit SDV IM (14:25)
[2025-08-09] MEDS: mupirocin oint 22 gm 1 APPLIC TOPICAL (14:26)
[2025-08-09 14:46] VITALS: BP 147/99; PULSE 82; O2SAT 99
== END 2025-08-09 14:47 | disposition home or self-care (01) ==
PROVIDERS: Emergency Provider Physician Assistant
DX: S81.851A Open bite, right lower leg, initial encounter (principal); S81.852A Open bite, left lower leg, initial encounter; W55.41XA Bitten by pig, initial encounter; Z20.3 Contact with and (suspected) exposure to rabies; Z29.14 Encounter for prophylactic rabies immune globulin; Z72.0 Tobacco use
CPT/HCPCS: 73590; 90375; 90675; 96372; 99283; J9999

== ENCOUNTER 2025-08-18 10:15 | Oncology outpatient (recurring) (ONCR) | payer MEDICAID, SELFPAY ==
[2025-08-12] MEDS: rabies vaccine 2.5 unit SDV IM (09:28)
[2025-08-18] MEDS: rabies vaccine 2.5 unit SDV IM (10:17)
== END 2025-08-19 23:59 | disposition home or self-care (01) ==
PROVIDERS: Visit Provider Physician Assistant
DX: Z53.9 Procedure and treatment not carried out, unspecified reason (principal); Z23 Encounter for immunization; Z20.3 Contact with and (suspected) exposure to rabies; S81.852A Open bite, left lower leg, initial encounter; S81.851A Open bite, right lower leg, initial encounter; W55.41XA Bitten by pig, initial encounter
CPT/HCPCS: 90471; 90675

== ENCOUNTER 2025-08-25 09:32 | Oncology outpatient (recurring) (ONCR) | payer MEDICAID, SELFPAY ==
[2025-08-25] MEDS: rabies vaccine 2.5 unit SDV IM (09:55)
== END 2025-09-19 23:59 | disposition home or self-care (01) ==
PROVIDERS: Visit Provider Physician Assistant
DX: Z23 Encounter for immunization (principal); Z20.3 Contact with and (suspected) exposure to rabies; T14.8XXA Other injury of unspecified body region, initial encounter; W55.41XA Bitten by pig, initial encounter
CPT/HCPCS: 90471; 90675